=== PATIENT | male | born 1935 | race Caucasian/White ===

== ENCOUNTER 2017-07-27 21:26 | Emergency (ER) | payer OTHER ==
[2017-07-27] MEDS ORDERED: SODIUM CHLORIDE 1,000 ML IV STA (21:33)
[2017-07-27] MEDS ORDERED: DECADRON 10 MG/ML SDV (RHC/FCC ONLY) IVP STA (21:34)
[2017-07-27] MEDS ORDERED: PEPCID IVP STA (21:34)
[2017-07-27] MEDS ORDERED: BENADRYL IVP STA (21:34)
[2017-07-27] MEDS ORDERED: DECADRON 4 MG/ML SDV IVP STA (21:41)
[2017-07-27 21:43] VITALS: BP 112/66; TEMP 97.6; BMI 24.3
--- NOTE | 2017-07-27 22:06 | CT ---
EXAM: CT brain without contrast HISTORY: Syncope TECHNIQUE: Multi-slice sequential. Coronal and sagittal reformations were performed. COMPARISON: None FINDINGS: There is no acute intracranial hemorrhage, extraxial fluid collection, mass affect, or midlineshift. Chronic-appearing small lacunar infarcts are present within the right cerebellum. There is mild to m oderate diffuse sulcal prominence. Ventricular prominence is consistent with the degree of parenchym al volume loss. Periventricular white matter hypodensity is seen. Intracranial atherosclerosis is p resent. The basal cisterns are patent. No large vascular territory area of hypodensity is seen with in the brain. The calvarium is unremarkable. Visualized paranasal sinuses are clear. Mastoid air ce lls are clear. IMPRESSION: 1. No acute intracranial findings. 2. Chronic-appearing right cerebellar lacunar infarcts. 3. 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
[2017-07-28] MEDS ORDERED: SODIUM CHLORIDE 1,000 ML IV STA (00:32)
--- NOTE | 2017-07-28 00:39 | ED.PDOC ---
General ED Provider: Dr. HILTON FULLER-ER Chief Complaint: Syncope Stated Complaint: hes got the rash and his bp was low Time Seen by Physician: 21:30 Information Source: Patient, Family Exam Limitations: No limitations Nursing and Triage Documentation Reviewed and Agree: Yes Reviewed sepsis parameters & appropriate labs ordered?: Yes System Inflammatory Response Syndrome: Not Applicable Sepsis Protocol: For patient's 13 years and over: Temp is 96.8 and below OR 101 and greater Pulse >90 BPM Resp >20/minute Acutely Altered Mental Status Are patient's symptoms suggestive of a new infection, such as: -Pneumonia -Skin, Soft Tissue -Endocarditis -UTI -Bone, Joint Infection -Implantable Device -Acute Abdominal Infection -Wound Infection -Meningitis -Blood Stream Catheter Infection -Unknown Skin Complaint Exam - Skin Rash/Itching Complaint/Exam Onset/Duration: one hour Symptoms Are: Still present Initial Severity: Mild Current Severity: Moderate Location: arms and trunk Potential Exposures: Reports: Unknown Aggravating: Reports: None Alleviating: Reports: None Associated Signs and Symptoms: Denies: Difficulty breathing, Fever, Chills Skin Findings: Present: Urticaria Differential Diagnoses: Allergic Reaction Review of Systems - Review Of Systems Constitutional: Reports: No symptoms Eyes: Reports: No symptoms Ears, Nose, Mouth, Throat: Reports: No symptoms Respiratory: Reports: No symptoms Cardiac: Reports: No symptoms GI: Reports: No symptoms : Reports: No symptoms Musculoskeletal: Reports: No symptoms Skin: Reports: Rash Neurological: Reports: Weakness Endocrine: Reports: No symptoms Hematologic/Lymphatic: Reports: No symptoms All Other Systems: Reviewed and Negative Past Medical History - Past Medical History Previously Healthy: No Endocrine: Reports: Unknown Cardiovascular: Reports: Unknown Respiratory: Reports: Unknown Hematological: Reports: Unknown Gastrointestinal: Reports: Unknown Genitourinary: Reports: Unknown Neuro/Psych: Reports: Unknown Musculoskeletal: Reports: Unknown Cancer: Reports: Unknown - Surgical History General Surgical History: Reports: Unknown - Family History Family History: Reports: Unknown - Social History Smoking Status: Former smoker Hx Substance Use: No Alcohol Screening: Occasionally - Immunizations Tetanus Shot up to Date: (UNKNOWN) Physical Exam - Physical Exam Appearance: Well-appearing, No pain distress, Well-nourished Eyes: IVELISSE, EOMI, Conjunctiva clear ENT: Ears normal, Nose normal, Oropharynx normal Neck: Supple Respiratory: Airway patent, Breath sounds clear, Breath sounds equal, Respirations nonlabored Cardiovascular: RRR, Pulses normal, No rub, No murmur GI/: Soft Musculoskeletal: Normal strength, ROM intact, No edema, No calf tenderness Skin: Warm, Dry, Normal color Neurological: Sensation intact, Motor intact, Reflexes intact, Cranial nerves intact, Alert, Oriented, Unresponsive Psychiatric: Affect appropriate, Mood appropriate Interpretation - Radiology Interpretation Radiology Interpretation By: Radiologist Radiology Results: Negative Exam Interpreted: CT Scan - EKG Interpretation Time of EKG #1: 00:39 Rate: Normal Rhythm: Sinus Ectopy: None Mclean: NL ST Segment: Normal Interpretation: nsr Re-Evaluation - Re-Evaluation Time of Re-Evaluation: 00:39 Status: Improved Vital Signs Stable: Yes Pain Level: 0 Appearance: NAD Lungs: Clear Skin: Warm and Dry Neuro: Alert and Oriented X3 CV: RRR Critical Care Note - Critical Care Note Total Time (mins): 0 Course - Course Hematology/Chemistry: 07/27/17 21:40 07/27/17 21:40 Orders, Labs, Meds: Lab Review 07/27/17 07/27/17 21:40 21:40 WBC 17.85 H RBC 4.20 L Hgb 13.5 L Hct 38.4 L MCV 91.4 MCH 32.1 H MCHC 35.2 RDW Coeff of Amada 12.5 Plt Count 296 Immature Gran % (Auto) 0.7 Neut % (Auto) 78.0 Lymph % (Auto) 13.8 [place] % (Auto) 6.5 Eos % (Auto) 0.7 Baso % (Auto) 0.3 Immature Gran # (Auto) 0.1 Neut # 13.9 H Lymph # 2.5 [place] # 1.2 Eos # 0.1 Baso # 0.1 Sodium 135 L Potassium 4.4 Chloride 100 Carbon Dioxide 24 Anion Gap 15.4 BUN 21 H Creatinine 1.20 H Estimated GFR (MDRD) 58.00 BUN/Creatinine Ratio 17.50 Glucose 192 H Calcium 8.8 Total Bilirubin 0.7 AST 19 ALT 14 Alkaline Phosphatase 58 Total Creatine Kinase 67 Troponin I < 0.0100 Total Protein 6.6 Albumin 3.5 Globulin 3.1 Albumin/Globulin Ratio 1.13 Orders Category Date Time Status EKG-(ED ONLY) Stat CARDIO 07/27/17 21:33 Completed Electrical And Instrumentation Manager [ED FIELD CROP I FARMWORKER APPLIED] .ONCE EMERGENCY 07/27/17 21:33 Active IV [ED IV/MEDIPORT/POWERPORT] .ONCE EMERGENCY 07/27/17 21:33 Active CBC W/ AUTO DIFF Stat LAB 07/27/17 21:40 Completed COMPREHENSIVE METABOLIC PANEL Stat LAB 07/27/17 21:40 Completed CREATINE KINASE Stat LAB 07/27/17 21:40 Completed TROPONIN I Stat LAB 07/27/17 21:40 Completed URINALYSIS C & S IF INDICATED Stat LAB 07/28/17 00:31 Ordered 0.9 % Sodium Chloride [Saline Flush] MEDS 07/27/17 21:33 Ordered 1 syr IVF PRN PRN Dexamethasone 4 mg/ml Inj [Decadron 4 mg/ml Sdv] MEDS 07/27/17 21:41 Discontinued 8 mg IVP ONCE STA Diphenhydramine Inj [Benadryl] MEDS 07/27/17 21:34 Discontinued 50 mg IVP ONCE STA Famotidine Inj [Pepcid] MEDS 07/27/17 21:34 Discontinued 40 mg IVP ONCE STA Sodium Chloride 0.9% [Sodium Chloride] 1,000 ml MEDS 07/27/17 21:33 Discontinued IV BOLUS Sodium Chloride 0.9% [Sodium Chloride] 1,000 ml MEDS 07/28/17 00:[address] HEAD W/O CONTRAST Stat RADS 07/27/17 21:35 Completed Medications Generic Name Dose Route Start Last Admin Trade Name Freq PRN Reason Stop Dose Admin Sodium Chloride 1,000 mls @ 1,000 mls/hr 07/28/17 00:32 07/28/17 00:34 Sodium Chloride IV 07/28/17 01:31 1,000 mls/hr BOLUS STA Administration Sodium Chloride 1 syr 07/27/17 21:33 07/27/17 21:54 Saline Flush IVF 1 syr PRN PRN Administration To flush IV Discontinued Medications Generic Name Dose Route Start Last Admin Trade Name Freq PRN Reason Stop Dose Admin Dexamethasone Sodium Phosphate 8 mg 07/27/17 21:41 07/27/17 21:54 Decadron 4 Mg/Ml Sdv IVP 07/27/17 21:42 8 mg ONCE STA Administration Diphenhydramine HCl 50 mg 07/27/17 21:34 07/27/17 21:53 Benadryl IVP 07/27/17 21:35 50 mg ONCE STA Administration Famotidine 40 mg 07/27/17 21:34 07/27/17 21:57 Pepcid IVP 07/27/17 21:35 40 mg ONCE STA Administration Sodium Chloride 1,000 mls @ 1,000 mls/hr 07/27/17 21:33 07/27/17 21:37 Sodium Chloride IV 07/27/17 22:32 1,000 mls/hr BOLUS STA Administration Vital Signs: Temp Pulse Resp BP Pulse Ox 07/27/17 21:27 97.6 F 92 H 20 112/66 96 Departure - Departure Time of Disposition: 00:39 Disposition: HOME SELF-CARE Discharge Problem: Urticaria Instructions: Urticaria (ED) Condition: Good Pt referred to PMD for follow-up: Yes IPMP verified?: No Additional Instructions: medrol dose pack--benadryl 50mg q 4hrs prn --f/u with pcp Allergies/Adverse Reactions: Allergies No Known Drug Allergies Adverse Reaction (Verified 07/27/17 21:39) Home Medications: Ambulatory Orders 1 [Unobtainable] 07/27/17 Disposition Discussed With: Patient, Family
[2017-07-28] MEDS ORDERED: ROCEPHIN 1 GM in SODIUM CHLORIDE 50 ML IV STA (00:45)
[2017-07-28] MEDS ORDERED: ROCEPHIN ONE (00:50)
[2017-07-28 05:46] VITALS: BMI 24.2
== END 2017-07-28 02:15 | disposition home or self-care (01) ==
LOC: ED 21:26 → EDBD 21:26 → ED 07-28 02:15
DX: L50.9 Urticaria, unspecified (principal); R55 Syncope and collapse; R53.1 Weakness
CPT/HCPCS: 36415; 80053; 81001; 82550; 84484; 85025; 87086; 93005; 93010; 96361; 96365; 96375; 99283

== ENCOUNTER 2017-07-28 03:15 | Observation (INO) ==
[2017-07-28] MEDS ORDERED: SOLU-MEDROL 125 MG IVP STA (03:16)
[2017-07-28] MEDS ORDERED: BENADRYL IVP STA (03:16)
[2017-07-28] MEDS ORDERED: PEPCID IVP STA (03:16)
[2017-07-28] MEDS ORDERED: ZYRTEC PO STA (03:17)
[2017-07-28] MEDS ORDERED: SODIUM CHLORIDE 1,000 ML IV STA (03:44)
--- NOTE | 2017-07-28 03:52 | ED.PDOC ---
General ED Provider: Dr. HILTON FULLER-ER Chief Complaint: Allergic Reaction Stated Complaint: was seen earlier for the same thing--now with rash over arms and trunk Time Seen by Physician: 03:40 Mode of Arrival: Walk-In Information Source: Patient, Family Exam Limitations: No limitations Nursing and Triage Documentation Reviewed and Agree: Yes Reviewed sepsis parameters & appropriate labs ordered?: Yes System Inflammatory Response Syndrome: Not Applicable Sepsis Protocol: For patient's 13 years and over: Temp is 96.8 and below OR 101 and greater Pulse >90 BPM Resp >20/minute Acutely Altered Mental Status Are patient's symptoms suggestive of a new infection, such as: -Pneumonia -Skin, Soft Tissue -Endocarditis -UTI -Bone, Joint Infection -Implantable Device -Acute Abdominal Infection -Wound Infection -Meningitis -Blood Stream Catheter Infection -Unknown Skin Complaint Exam - Skin Rash/Itching Complaint/Exam Onset/Duration: 30 min Symptoms Are: Still present Initial Severity: Mild Current Severity: Moderate Location: trunk and arms Potential Exposures: Reports: Unknown Aggravating: Reports: None Alleviating: Reports: None Associated Signs and Symptoms: Denies: Difficulty breathing, Fever, Chills Skin Findings: Present: Petechiae Differential Diagnoses: Allergic Reaction Review of Systems - Review Of Systems Constitutional: Reports: No symptoms Eyes: Reports: Drainage Ears, Nose, Mouth, Throat: Reports: No symptoms Respiratory: Reports: No symptoms Cardiac: Reports: No symptoms GI: Reports: No symptoms : Reports: No symptoms Musculoskeletal: Reports: No symptoms Skin: Reports: Rash Neurological: Reports: No symptoms Endocrine: Reports: No symptoms Hematologic/Lymphatic: Reports: No symptoms All Other Systems: Reviewed and Negative Past Medical History - Past Medical History Previously Healthy: No Endocrine: Reports: Unknown Cardiovascular: Reports: Unknown Respiratory: Reports: Unknown Hematological: Reports: Unknown Gastrointestinal: Reports: Unknown Genitourinary: Reports: Unknown Neuro/Psych: Reports: Unknown Musculoskeletal: Reports: Unknown Cancer: Reports: Unknown - Surgical History General Surgical History: Reports: Unknown - Family History Family History: Reports: Unknown - Social History Smoking Status: Former smoker Hx Substance Use: No Alcohol Screening: Occasionally - Immunizations Tetanus Shot up to Date: No Physical Exam - Physical Exam Appearance: Well-appearing Eyes: IVELISSE, EOMI, Conjunctiva clear ENT: Ears normal Neck: Supple Respiratory: Airway patent, Breath sounds clear, Breath sounds equal, Respirations nonlabored Cardiovascular: RRR GI/: Soft, Nontender, No masses, Bowel sounds normal, No Organomegaly Musculoskeletal: Normal strength, ROM intact, No edema, No calf tenderness Skin: Warm Neurological: Sensation intact, Motor intact, Reflexes intact, Cranial nerves intact, Alert, Oriented Psychiatric: Affect appropriate, Mood appropriate Re-Evaluation - Re-Evaluation Time of Re-Evaluation: 05:04 Status: Improved Vital Signs Stable: Yes Pain Level: 0 Appearance: NAD Lungs: Clear Skin: Warm and Dry Neuro: Alert and Oriented X3 CV: RRR Physician Notification - Case Discussed Physician Notified: dr campos Time of Notification: 05:07 Critical Care Note - Critical Care Note Total Time (mins): 0 Course - Course Orders, Labs, Meds: Orders Category Date Time Status IV [ED IV/MEDIPORT/POWERPORT] .ONCE EMERGENCY 07/28/17 03:16 Active 0.9 % Sodium Chloride [Saline Flush] MEDS 07/28/17 03:16 Ordered 1 syr IVF PRN PRN Cetirizine HCl [Zyrtec] MEDS 07/28/17 03:17 Discontinued 10 mg PO ONCE STA Diphenhydramine Inj [Benadryl] MEDS 07/28/17 03:16 Discontinued 50 mg IVP ONCE STA Famotidine Inj [Pepcid] MEDS 07/28/17 03:16 Discontinued 20 mg IVP ONCE STA Methylprednisolone Sod Succ/Pf [Solu-Medrol 125 mg] MEDS 07/28/17 03:16 Discontinued 125 mg IVP ONCE STA Sodium Chloride 0.9% [Sodium Chloride] 1,000 ml MEDS 07/28/17 03:44 Discontinued IV BOLUS Medications Generic Name Dose Route Start Last Admin Trade Name Freq PRN Reason Stop Dose Admin Sodium Chloride 1 syr 07/28/17 03:16 07/28/17 03:39 Saline Flush IVF 1 syr PRN PRN Administration To flush IV Discontinued Medications Generic Name Dose Route Start Last Admin Trade Name Freq PRN Reason Stop Dose Admin Cetirizine HCl 10 mg 07/28/17 03:17 07/28/17 03:44 Zyrtec PO 07/28/17 03:18 10 mg ONCE STA Administration Diphenhydramine HCl 50 mg 07/28/17 03:16 07/28/17 03:39 Benadryl IVP 07/28/17 03:17 50 mg ONCE STA Administration Famotidine 20 mg 07/28/17 03:16 07/28/17 03:42 Pepcid IVP 07/28/17 03:17 20 mg ONCE STA Administration Sodium Chloride 1,000 mls @ 1,000 mls/hr 07/28/17 03:44 07/28/17 03:39 Sodium Chloride IV 07/28/17 04:43 1,000 mls/hr BOLUS STA Administration Methylprednisolone Sodium Succinate 125 mg 07/28/17 03:16 07/28/17 03:41 Solu-Medrol 125 Mg IVP 07/28/17 03:17 125 mg ONCE STA Administration Vital Signs: Temp Pulse Resp BP Pulse Ox 07/28/17 03:36 98.1 F 100 H 12 102/70 95 Departure - Departure Time of Disposition: 05:05 Disposition: PLACED OBSERVATION Discharge Problem: Urticaria Instructions: Urticaria (GEN) Condition: Good Pt referred to PMD for follow-up: Yes IPMP verified?: No Allergies/Adverse Reactions: Allergies No Known Drug Allergies Adverse Reaction (Verified 07/28/17 03:42) Home Medications: Ambulatory Orders 1 [Unobtainable] 07/27/17 Disposition Discussed With: Patient, Family
[2017-07-28] MEDS ORDERED: TAGAMET PO STA (05:11)
[2017-07-28] MEDS ORDERED: SODIUM CHLORIDE 1,000 ML IV SCH (05:30)
[2017-07-28 05:46] VITALS: BMI 24.2
[2017-07-28] MEDS ORDERED: BENADRYL PO PRN (08:52)
[2017-07-28] MEDS ORDERED: BENADRYL IVP SCH (09:00)
--- NOTE | 2017-07-28 10:45 | DI ---
EXAM: Two views of the chest. History: Cough. Findings: Heart size is normal. No focal consolidation. No appreciable pleural fluid and no pneumo thorax. Moderate hiatal hernia with air-fluid level. Atherosclerotic vascular calcifications. No a cute osseous abnormalities. Impression: 1. No acute cardiopulmonary process. 2. Moderate hiatal hernia
--- NOTE | 2017-07-28 10:53 | PCM.PROG ---
Attending Provider: ATTENDING PROVIDER: Dr. ANJU CARR This patient is seen with Alyce Benz, Nurse Practitioner. DATE OF SERVICE: 07/28/17 SUBJECTIVE: This 82 year old WHITE/ M was hospitalized 07/28/17. Sitting in bed, alert. The patient came in through ER with rash head to toe, mild itching, no new exposures. REVIEW OF SYSTEMS: CONSTITUTIONAL: No night sweats. No fatigue, malaise, lethargy. No fever or chills. HEENT: Eyes: No visual changes. No eye pain. No eye discharge. ENT: No runny nose. No epistaxis. No sinus pain. No odynophagia. No congestion. RESPIRATORY: No cough, no congestion. No hemoptysis. No shortness of breath. CARDIOVASCULAR: No angina symptoms. No CHF symptoms. No atypical chest pain for CAD. No palpitations. No orthopnea.. GASTROINTESTINAL: No abdominal pain. No nausea or vomiting. No diarrhea or constipation. No hematemesis. No hematochezia. GENITOURINARY: No urgency. No frequency. No dysuria. No hematuria. No obstructive symptoms. No discharge. No pain. No significant abnormal bleeding. MUSCULOSKELETAL: No musculoskeletal pain; no joint swelling. NEUROLOGICAL: Awake, alert, oriented to time, place and person. No headache. No neck pain. No syncope. No seizures. No dizziness. PSYCHIATRIC: Not anxious. No depression. No suicidal thoughts. No homicidal thoughts. SKIN: Rash all over body. ENDOCRINE: No unexplained weight loss. No weight gain. HEMATOLOGIC/LYMPHATIC: No anemia. No purpura. No petechiae. No prolonged or excessive bleeding. No palpable lymph nodes. PHYSICAL EXAMINATION: GENERAL: The patient is awake, alert and oriented, lying in bed in no distress. VITAL SIGNS: Temperature 97.5 F, Pulse 82, Respiratory Rate 20, BP 102/70, Pulse Ox 97% HEENT: Head normocephalic, atraumatic. Eyes: Extraocular muscles are intact. Pupils are equal, round and reactive to light and accommodation. Ears: No lesions. Nose appeared normal. Throat: No exudate or erythema. NECK: Supple. No JVD, no carotid bruit. No lymphadenopathy or thyromegaly. LUNGS: Diminished breath sounds bilaterally. Clear to auscultation. Percussion note normal. Chest symmetrical. HEART: S1, S2, no S3. No murmurs. No cyanosis or clubbing. No ascites. Pulses: Dorsalis pedis and posterior tibial pulses +1 to +2 both sides. ABDOMEN: Soft. Non-tender. Bowel sounds active. No CVA tenderness. No mass felt. EXTREMITIES: No edema. Full range of motion of all extremities, equal. NEUROLOGIC: No focal deficit. Cranial nerves II through XII are grossly intact. No headache, no double vision or headache. SKIN: Dry. Flat red scattered rash generalized, also on palms. Turgor-normal. LYMPHATIC: No palpable lymph nodes/no lymphedema. MUSCULOSKELETAL: Normal joints with no swelling. Muscle tone is normal. LAB REVIEW: 07/28/17 05:55 07/28/17 05:55 07/28/17 05:55: Sodium 136, Potassium 4.7, Chloride 107, Carbon Dioxide 21 L, Anion Gap 12.7, BUN 18, Creatinine 0.98, Estimated GFR (MDRD) 73.00, BUN/ Creatinine Ratio 18.36, Glucose 185 H, Calcium 8.2, Total Bilirubin 0.7, AST 15 , ALT 13, Alkaline Phosphatase 46 L, Total Protein 5.6 L, Albumin 3.1 L, Globulin 2.5, Albumin/Globulin Ratio 1.24 07/28/17 05:55: WBC 13.70 H, RBC 4.08 L, Hgb 12.9 L, Hct 36.9 L, MCV 90.4, MCH 31.6 H, MCHC 35.0, RDW Coeff of Amada 12.3, Plt Count 279, Immature Gran % (Auto) 0.6, Neut % (Auto) 91.3, Lymph % (Auto) 5.9 L, [place] % (Auto) 2.0, Eos % (Auto) 0.0, Baso % (Auto) 0.2, Immature Gran # (Auto) 0.1, Neut # 12.5 H, Lymph # 0.8, [place] # 0.3 L, Eos # 0.0, Baso # 0.0 ASSESSMENT: 1. RASH 2. HYPOTENSION PLAN: 1. Chest x-ray 2. D/C IV Benadryl 3. Benadryl p.o. prn itching 4. Continue IV steroids 5. Solumedrol 125 q.8hr Plan and coordination of the patient's care discussed in the presence of Dried Fruit Washer and nurse. CONDITION: Stable SCRIBED BY: DARREN DINERO Computer Video Game Designer scribed while in presence of service performed by Dr. Carr/Alyce Benz APRN on 07/28/17 ([id number])
[2017-07-28] MEDS ORDERED: SOLU-MEDROL 40 MG IVP SCH (13:00)
[2017-07-28] MEDS ORDERED: SOLU-MEDROL 125 MG IVP SCH (13:00)
[2017-07-28 14:57] VITALS: BP 148/80; TEMP 97.7
[2017-07-28] MEDS ORDERED: NEURONTIN PO SCH (21:00)
[2017-07-29] MEDS ORDERED: ASPIRIN EC PO SCH (08:00)
[2017-07-29] MEDS ORDERED: NON-FORMULARY MEDICATION (Losartan Potassium 50 MG) PO SCH (09:00)
--- NOTE | 2017-07-29 11:04 | PN ---
DATE OF SERVICE: 07/28/17 SUBJECTIVE: The patient was hospitalized with hives. The patient is under observation.The patient's condition has improved. He was seen and examined with the Nurse Practitioner. PLAN: 1. Continue steroids and antihistamines TIME SPENT: More than 30 minutes. Plan and coordination of the patient's care discussed in the presence of nurse. ELLIS
--- NOTE | 2017-09-10 13:19 | SSS ---
DATE OF SERVICE: 07/28/17 HISTORY OF PRESENT ILLNESS: This is a white male who presented to the emergency room brought in by his son complaining of rash and weakness. He stated that the rash started all of a sudden that day and he was experiencing some swelling and itching. REVIEW OF SYSTEMS: CONSTITUTIONAL: No night sweats. No fatigue, malaise, lethargy. No fever or chills. HEENT: Eyes: No visual changes. No eye pain. No eye discharge. ENT: No runny nose. No epistaxis. No sinus pain. No sore throat. No odynophagia. No ear pain. No congestion. RESPIRATORY: No cough, no congestion. No hemoptysis. No shortness of breath. CARDIOVASCULAR: No angina symptoms. No CHF symptoms. No atypical chest pain for CAD. No palpitations. No orthopnea. GASTROINTESTINAL: No abdominal pain. No nausea or vomiting. No diarrhea or constipation. No hematemesis. No hematochezia. GENITOURINARY: No dysuria. No hematuria. No obstructive symptoms. No discharge. No pain. No significant abnormal bleeding. MUSCULOSKELETAL: No musculoskeletal pain. No joint swelling. NEUROLOGICAL: Awake, alert, oriented to time, place and person. No headache. No neck pain. No syncope. No seizures. No dizziness. PSYCHIATRIC: Not anxious. No depression. No suicidal thoughts. No homicidal thoughts. SKIN: Generalized rash. No lesions. No wounds. ENDOCRINE: No unexplained weight loss. No weight gain. HEMATOLOGIC/LYMPHATIC: No anemia. No purpura. No petechiae. No prolonged or excessive bleeding. No palpable lymph nodes. PAST MEDICAL HISTORY: Hypertension Dementia Osteoarthritis Coronary artery disease Dyslipidemia PAST SURGICAL HISTORY: Cataracts PERSONAL/FAMILY HISTORY/SOCIAL HISTORY: The patient currently resides at home by himself. He does have good family support He is a nonsmoker. No alcohol or ilicit drug use. PHYSICAL EXAMINATION: HEENT: Head normocephalic, atraumatic. Eyes: Extraocular muscles are intact. Pupils are equal, round and reactive to light and accommodation. Ears: No lesions. Nose appeared normal. Throat: No exudate or erythema. NECK: Supple. No JVD, no carotid bruit. No lymphadenopathy or thyromegaly. LUNGS: Diminished breath sounds bilaterally. Clear to auscultation. Percussion note normal. Chest symmetrical. HEART: S1, S2, no S3. No murmurs. No cyanosis or clubbing. No ascites. Pulses: Dorsalis pedis and posterior tibial pulses +1 to +2 both sides. ABDOMEN: Soft. Nontender. Bowel sounds active. No CVA tenderness. No mass felt. EXTREMITIES: No edema. Full range of motion of all extremities, equal. NEUROLOGIC: No focal deficit. Cranial nerves II through XII are grossly intact. No headache, no double vision or headache. SKIN: The patient has generalized red, raised rash on arms, trunk, palms, extending to ears. No drainage. Very mild swelling. LYMPHATIC: No palpable lymph nodes/no lymphedema. MUSCULOSKELETAL: Normal joints with no swelling. Muscle tone is normal. Old/present records reviewed Office records reviewed. ALLERGIES: NKDA MEDICATIONS: Neurontin 300 mg p.o. bedtime Ibuprofen 400 mg p.o. q.8h p.r.n. Aspirin 81 mg p.o. daily Vitamin C 500 mg p.o. daily Aleve 200 mg p.o. q.12h p.r.n. Cozaar 50 mg p.o. daily Medrol Dosepak 4 mg p.o. as directed LABS/EKG'S/X-RAY/ECHO/ABG: WBC 13.70, RBC 4.08, Hgb 12.9, Hct 36.9, platelet count 279. Chemistry: Sodium 136, potassium 4.7, chloride 107, carbon dioxide 21, BUN 18, creatinine 0.98, Estimated GFR (MDRD) 73.00, BUN/Creatinine ratio 18.36, glucose 185, calcium 8.2 , total bilirubin 0.7, AST 15, ALT 13, alkaline phosphatase 46, total protein 5.6, albumin 3.1, globulin 2.5. Chest x-ray moderate hiatal hernia; no acute cardiopulmonary process. PROGRESS NOTES: See EMR. Case Discussed with Attending Physician: yes Case Discussed with Family: yes BRIEF HOSPITAL COURSE: Within the course of 24 hours after the patient was admitted, started on IV steroids and given Benadryl, the rash significantly improved. Erythema was nearly resolved. Lesions on the palms had resolved. He stated he was no longer itching and started that he wanted to go home and no longer wanted to stay in the hospital. Lab values were all stable. He had no fever, no signs of infectious process. He was discharged home in stable condition with a tapering dose of steroids and instructed to continue Benadryl 25 mg t.i.d. and taper as well as a tapering dose of steroids and continue Zantac 150 b.i.d. for the next 7 days. We will follow up with him in the office next week. DIAGNOSES: 1. ALLERGIC ACUTE DERMATITIS VERSUS VIRAL EXANTHEM RECOMMENDATIONS/PLAN: 1. Benadryl 25 mg q.8hr 2. Start Solu-Medrol 125 mg IV q.8hr 3. Zantac 150 mg p.o. b.i.d. TIME SPENT: More than 70 minutes. MTDD
== END 2017-07-28 17:00 | disposition home or self-care (01) ==
LOC: ED 03:15 → MEDSURG A 05:15
PROVIDERS: ADMIT Internal Medicine; ATTEND Internal Medicine
DX: L23.9 Allergic contact dermatitis, unspecified cause (principal); B09 Unspecified viral infection characterized by skin and mucous membrane lesions; I95.9 Hypotension, unspecified; L50.9 Urticaria, unspecified; I10 Essential (primary) hypertension; R55 Syncope and collapse; R53.1 Weakness; Z79.899 Other long term (current) drug therapy
CPT/HCPCS: 36415; 80053; 81001; 82550; 84484; 85025; 87086; 93005; 93010; 96361; 96365; 96374; 96375; 96376; 99235; 99283; 99284

== ENCOUNTER 2018-08-18 06:47 | Outpatient (CLI) | payer OTHER ==
--- NOTE | 2018-08-19 10:38 | ECHO2D ---
Date of Exam: 08/18/18 Ordering Physician: DR. ANJU CARR Room #: OP Reason for Echo: CAD, SOB M-Mode Normal Adult Results LV Dimensions Normal Adult Results AoV Opening excursions >1.6 1.5 LVEDD-base- 3.5-5.8 3.7 Ao root dimensions 2.0-3.7 3.0 LVESD-base- 3.1-4.6 L. Atrium dimensions 1.9-3.8 4.5 Post. Wall thickness 0.8-1.1 1.2 IV septum (thickness) 0.7-1.2 1.2 Post. Wall excursion 0.72-1.3 NORMAL Septal motion NORMAL Systolic motion R. Ventricular cavity 1.5-2.0 NORMAL LVEF 60% 55% Paradoxical septal wall motion NORMAL 2-D : 2-D M Mode Echocardiogram was performed using apical four chamber and left parasternal long and short axis views. Mitral, tricuspid and aortic valves appear to be normal. Contractility of the left ventricle seems to be normal, so is the cavity size. Enlarged Left atrial cavity size. Aortic root appears to be normal. There is no pericardial effusion. There is no thrombus noted in the left ventricular or left aortic cavity. No mitral valve prolapse noted. M-MODE: MV: NORMAL AV: NORMAL TV: NORMAL PV: CHAMBER SIZE: ENLARGED LEFT ATRIAL CAVITY WALL MOTION: NORMAL PERICARDIUM: NORMAL INTERPRETATION: 1. LEFT VENTRICULAR HYPERTROPHY WITH ENLARGED LEFT ATRIAL CAVITY 2. LEFT VENTRICULAR CONTRACTILITY-EJECTION FRACTION 55% 3. STIFF LEFT VENTRICLE 4. VALVES --NORMAL MTDD
== END 2018-08-18 06:48 | disposition home or self-care (01) ==
LOC: CAR 06:47
PROVIDERS: ATTEND Internal Medicine
DX: R06.02 Shortness of breath (principal); I25.10 Atherosclerotic heart disease of native coronary artery without angina pectoris
CPT/HCPCS: 93005; 93010

== ENCOUNTER 2018-08-20 06:35 | Outpatient (CLI) ==
--- NOTE | 2018-08-20 14:40 | STRESSMOD ---
Date of Test: 08/20/2018 Ordering Physician: DR. CARR Occupation:RETIRED Reason for Exam: CORONARY ARTERY DISEASE, SHORTNESS OF BREATH Smoking History : EX [employer] QUIT 23 YR AGO Height: 63" Weight: 131 Current Medications: ASPIRIN, NEURONTIN, LOSARTAN Resting EKG: SINUS RHYTHM, NO ACUTE CHANGES, PREMATURE VENTRICULAR CONTRACTIONS Target Heart Rate: 114 Max Heart Rate: 135 Oxygen saturation at rest: 97% ON ROOM AIR S-T SEGMENT STAGE MPH/GRADE HEART RATE BPM BLOOD PRESSURE mmhg RHYTHM +/- ELEVATION DEPRESSION SYMPTOMS At Rest 78 128/86 SR X NONE 1 1.7/0% 121 128/72 SR X NONE 2 1.7/5% 3 1.7/10% 4 2.5/12% 5 3.4/14% Immediately After 136 SR X REACHED MAX HEART RATE Minutes Post Exercise 4 80 132/90 SR X NONE Minutes Post Exercise DURATION OF EXERCISE: 4 MINUTES AND 06 SECONDS MAXIMUM HEART RATE REACHED: 136 REASON FOR TERMINATION: REACHED MAX HEART RATE 93% OXYGEN SATURATION WITH EXERCISE ON ROOM AIR METS 4.0 INTERPRETATION: 1. TEST NEGATIVE FOR ISCHEMIC ST-T WAVE CHANGES 2. NO CHEST PAIN OR DISCOMFORT 3. NO ARRHYTHMIAS WITH EXERCISE 4. BLOOD PRESSURE RESPONSE NORMAL 5. NORMAL LEFT VENTRICULAR CONTRACTILITY RESTING POST EXERCISE MTDD
--- NOTE | 2018-08-24 11:32 | ECHOSTRESS ---
FDate of Exam: 08/20/2018 Ordering Physician: DR. CARR Reason for Echo: CORONARY ARTERY DISEASE, SHORTNESS OF BREATH, STRESS TEST = NO ISCHEMIA M-Mode Normal Adult Results LV Dimensions Normal Adult Results AoV Opening excursions >1.6 LVEDD-base- 3.5-5.8 Ao root dimensions 2.0-3.7 LVESD-base- 3.1-4.6 L. Atrium dimensions 1.9-3.8 Post. Wall thickness 0.8-1.1 IV septum (thickness) 0.7-1.2 Post. Wall excursion 0.72-1.3 Septal motion Systolic motion R. Ventricular cavity 1.5-2.0 LVEF 60% Paradoxical septal wall motion 2-D: NORMAL LEFT VENTRICULAR CONTRACTILITY RESTING AND POST EXERCISE M-MODE: MV: AV: TV: PV: CHAMBER SIZE: WALL MOTION: NORMAL LEFT VENTRICULAR CONTRACTILITY RESTING AND POST EXERCISE PERICARDIUM: INTERPRETATION: 1. NORMAL LEFT VENTRICULAR CONTRACTILITY RESTING AND POST EXERCISE MTDD
== END 2018-08-20 06:36 | disposition home or self-care (01) ==
LOC: EDBD → CAR 06:35
PROVIDERS: ATTEND Internal Medicine
DX: I25.10 Atherosclerotic heart disease of native coronary artery without angina pectoris (principal); R06.02 Shortness of breath